=== PATIENT | female | born 1950 | race American Indian/Alaskan Native ===

== ENCOUNTER 2017-08-29 08:54 | Outpatient (CLI) | payer MEDICARE ==
--- NOTE | 2017-08-29 09:57 | Mammography Report ---
Screening mammogram: The patient presents with what she indicates as a stable palpable left breast nodule in her left breast for at least 5 years and previously evaluated at [facility]. A marker was placed only in the lateral projection. Routine views were obtained demonstrating a generally fatty replaced breast pattern with no focal mass, architectural distortion, or other significant finding. CAD used. Impression: No significant findings. Recommendation: Outside images are being requested for comparison. Final recommendation will be made at that time. BI-RADS CATEGORY: 0 = Needs additional imaging evaluation ACR BI-RADS MAMMOGRAPHIC CODES: 0 = Needs additional imaging evaluation; 1 = Negative; 2 = Benign; 3 = Probably benign; 4 = Suspicious; 5 = Malignant; 6 = Known biopsy-proven malignancy COMMENT: 1. Dense breast tissue, i.e., adenosis, fibrocystic changes, etc., may obscure an underlying neoplasm. 2. Approximately 10% of cancers are not detected with mammography. 3. A negative mammography report should not delay biopsy if a clinically suspicious mass is present.
== END 2017-08-29 08:55 | disposition home or self-care (01) ==
LOC: MAMMO 08:54
PROVIDERS: ATTEND Internal Medicine Cardiovascular Disease
DX: Z12.31 Encounter for screening mammogram for malignant neoplasm of breast (principal)
CPT/HCPCS: 77067

== ENCOUNTER 2017-09-11 10:57 | Outpatient (CLI) | payer MEDICARE ==
--- NOTE | 2017-09-11 12:37 | XRay Report ---
ROUTINE CHEST, TWO VIEWS: HISTORY: Cough, smoker. The trachea, heart, mediastinal contour, lung alston and bony thorax are unremarkable. IMPRESSION: Unremarkable chest x-ray.
== END 2017-09-11 10:58 | disposition home or self-care (01) ==
LOC: XRAY 10:57
PROVIDERS: ATTEND Internal Medicine Cardiovascular Disease
DX: R05 Cough (principal); F17.200 Nicotine dependence, unspecified, uncomplicated
CPT/HCPCS: 71046

== ENCOUNTER 2017-10-09 11:51 | Outpatient (CLI) | payer MEDICARE ==
--- NOTE | 2017-10-10 12:41 | Ultrasound Report ---
LEFT DIGITAL DIAGNOSTIC MAMMOGRAM and LEFT BREAST ULTRASOUND: 10/09/17 11:51:00 CLINICAL: Recalled for asymmetry. COMPARISON:09/11/17 screening FINDINGS: ML and spot compression MLO and CC views were performed. An oval 5 mm circumscribed density persists above the nipple on the MLO and lateral views. It appears to be at 12 o'clock and has a lobular shape on the CC spot. Ultrasound of the left breast demonstrated an oval hyperechoic subareolar lesion at 12 o'clock measuring 5 x 3 x 4 mm. An oval hyperechoic lesion at 12 o'clock 3 cm from nipple measures 5 x 3 x 4 mm. IMPRESSION: Two probably benign left breast masses at 12 o'clock. Recommend six month followup left mammogram and left breast ultrasound. BI-RADS CATEGORY: 3 - - Probably Benign ACR BI-RADS MAMMOGRAPHIC CODES: 0 = Needs additional imaging evaluation; 1 = Negative; 2 = Benign; 3 = Probably benign; 4 = Suspicious; 5 = Malignant; 6 = Known biopsy-proven malignancy COMMENT: 1. Dense breast tissue, i.e., adenosis, fibrocystic changes, etc., may obscure an underlying neoplasm. 2. Approximately 10% of cancers are not detected with mammography. 3. A negative mammography report should not delay biopsy if a clinically suspicious mass is present. COMMENT: Patient follow-up letters are generated via our [employer] (formerly known as [employer]) application.
== END 2017-10-09 11:52 | disposition home or self-care (01) ==
LOC: MAMMO 11:51
PROVIDERS: ATTEND Internal Medicine Cardiovascular Disease
DX: N63.22 Unspecified lump in the left breast, upper inner quadrant (principal)